=== PATIENT | male | born 1955 | race Caucasian/White ===

== ENCOUNTER → 2020-04-12 09:22 | Outpatient (BNVA) | payer MEDICARE, MEDICAID, SELFPAY | PROVIDERS: Visit Provider Anesthesiology | DX: Z76.89 Persons encountering health services in other specified circumstances (principal) ==

== ENCOUNTER → 2020-08-27 13:12 | Outpatient (BNVA) | payer MEDICARE, MEDICAID, SELFPAY | PROVIDERS: PCP Nurse Practitioner Primary Care; Visit Provider Physician Assistant Medical ==

== ENCOUNTER 2020-09-03 10:54 | Outpatient (REF) | payer MEDICARE, MEDICAID, SELFPAY ==
--- NOTE | ~2020-09-03 | MM_ITS ---
EXAMINATION: BONE DENSITOMETRY CLINICAL INDICATION: Other osteoporosis without current pathological fracture. COMPARISON: Baseline BD dated 08/21/2017. TECHNIQUE: Using a [employer] DXA System (software version: 13.1) manufactured by [employer], dual-energy x-ray absorptiometry was performed of the lumbar spine and left hip. The images are of good technical quality. Summary results are attached. FINDINGS: AP SPINE L1-L4: Current: BMD 0.804 g/cm2, Z-score -3.5, T-score -3.5, osteoporosis, 8.9% increase from baseline (<5% change is not significant). Baseline: BMD 0.738 g/cm2. LEFT FEMUR, NECK: Current: BMD 0.778 g/cm2, Z-score -1.5, T-score -2.2, osteopenia. Baseline: BMD 0.685 g/cm2. LEFT FEMUR, TOTAL: Current: BMD 0.796 g/cm2, Z-score -1.9, T-score -2.1, osteopenia, 7.6% increase from baseline (<5% change is not significant). Baseline: BMD 0.740 g/cm2. IDENTIFIED RISK FACTORS: Height loss, tobacco use (current smoker), history of fracture (adult), secondary osteoporosis. HISTORY OF FRACTURE: Hip, forearm, shoulder. MEDICATIONS: None listed. MM/XR DEXA axial skeleton IMPRESSION: 1. DIAGNOSIS: Severe osteoporosis based on the lowest T-score value of -3.5 in the lumbar spine and fracture history applying World Health Organization criteria. 2. 10-YEAR FRACTURE RISK PREDICTION, FRAX: Major osteoporotic fracture (clinical spine, forearm, hip or shoulder) 13.7%. Hip fracture 4.9%. 3. Treatment Recommendations: NOF guidelines recommend consideration for treatment in postmenopausal women and men age 50 and older presenting with the following: -A hip or vertebral (clinical or morphometric) fracture. -T-score less than or equal to -2.5 at the femoral neck or spine after appropriate evaluation to exclude secondary causes. -Low bone mass at the hip or spine and a 10-year fracture probability by FRAX of greater than or equal to 3% for hip fracture or greater than or equal to 20% for major osteoporotic fracture based on the [place] adapted WHO algorithm. 4. Other Recommendations: All treatment decisions require clinical judgment and consideration of individual patient factors, including patient preferences, comorbidities, previous drug use, risk factors not captured in the FRAX model (e.g. frailty, falls, vitamin D deficiency, increased bone turnover, interval significant decline in bone density) and possible under or overestimation of fracture risk by FRAX. Additional medical evaluation for secondary cause of low bone mineral density may be appropriate. FUTURE SCAN RECOMMENDATION: People with diagnosed cases of osteoporosis or at high risk for fracture should have regular bone mineral density tests. For patients eligible for Medicare, routine testing is allowed once every 2 years. The testing frequency can be increased to one year for patients who have rapidly progressing disease, those who are receiving or discontinuing medical therapy to restore bone mass, or have additional risk factors.
== END 2020-09-03 10:55 | disposition home or self-care (01) ==
LOC: HO.MAMMO 10:54
PROVIDERS: Visit Provider Emergency Medicine
DX: M81.8 Other osteoporosis without current pathological fracture (principal); F17.200 Nicotine dependence, unspecified, uncomplicated
CPT/HCPCS: 77080

== ENCOUNTER 2020-09-14 11:14 | Outpatient (REF) | payer MEDICARE, MEDICAID, SELFPAY ==
--- NOTE | ~2020-09-14 | CT_ITS ---
EXAMINATION: CT CHEST SCREENING CLINICAL INFORMATION: Nicotine dependence. COMPARISON: None. TECHNIQUE: Multidetector volumetric CT imaging of the chest is performed without contrast using low dose technique. Additional 2D coronal and sagittal reformatted images and axial 3D maximum intensity projection (MIP) images are generated on the CT workstation. This CT examination was performed using dose optimization techniques as appropriate, variously including the following: *Automated exposure control *Adjustment of mA and/or kV according to patient size (this includes techniques or standardized protocols for targeted exams where dose is matched to indication/reason for exam; i.e. extremities or head) *Use of iterative reconstruction technique DLP: 67 mGy-cm FINDINGS: LUNGS: There is paraseptal emphysema most prominent in the right upper lobe. There is no pulmonary nodule, mass or consolidation. Minimal atelectatic changes seen in both lung bases. MEDIASTINUM: The thyroid lobes are symmetrical and normal. The central trachea and the bronchi are widely patent. Heart size and the great vessels are normal caliber. There are small shotty lymph nodes in the pretracheal space. No pericardial effusion seen. A small hiatal hernia is noted. PLEURA: There is no pleural effusion. No pleural mass or thickening. AXILLA: No lymphadenopathy. UPPER ABDOMEN: Visualized liver, spleen, pancreas and bilateral adrenal glands are unremarkable. The gallbladder has been surgically removed. OSSEOUS STRUCTURES: There is exaggerated thoracic kyphosis and moderate levoscoliosis with anterior wedge deformity T4, T6, T7 and T8 vertebra of indeterminate age. CT/CT lung screening IMPRESSION: No evidence of pulmonary nodule, mass or consolidation. Mild emphysema. Bibasilar atelectasis. Small hiatal hernia. Compression deformities of several thoracic vertebrae of indeterminate age. ASSESSMENT: Lung-RADS category 1: Negative RECOMMENDATION: Low dose annual CT chest exam.
== END 2020-09-14 11:15 | disposition home or self-care (01) ==
LOC: HO.CT 11:14
PROVIDERS: Visit Provider Physician Assistant Medical
DX: Z12.2 Encounter for screening for malignant neoplasm of respiratory organs (principal); F17.210 Nicotine dependence, cigarettes, uncomplicated
CPT/HCPCS: 71271

== ENCOUNTER 2020-12-21 10:21 | Outpatient (REF) | payer MEDICARE, MEDICAID, SELFPAY ==
--- NOTE | ~2020-12-21 | US_ITS ---
EXAMINATION: US COMPLETE ABDOMEN WITH LIVER ELASTOGRAPHY CLINICAL INFORMATION: Chronic viral hepatitis C COMPARISON: None. TECHNIQUE: Real-time imaging of the abdominal viscera. Noninvasive ultrasound liver fibrosis assessment is performed using [employer] Elast[employer] point quantification shear wave elastography (pSWE) with a C5-2 MHz transducer. Multiple elastography samples are obtained. FINDINGS: PANCREAS: Not well visualized due to bowel gas. ABDOMINAL AORTA: Not well visualized due to bowel gas. INFERIOR VENA CAVA: Not well visualized due to bowel gas. LIVER: Normal. The liver demonstrates normal size, contour and echogenicity. No focal lesion or intrahepatic biliary duct dilatation. The right lobe measures 16 cm in length. The left lobe measures 12 cm in length. Portal flow is normal. Hepatopedal. Shear wave liver elastography median stiffness is 1.3 m/s (reference: normal median stiffness is 1.3 m/s or less). IQR/median stiffness to assess sampling precision is 0.3 (reference: good quality data set is IQR/median stiffness of 0.15 or less). GALLBLADDER: Surgically removed COMMON BILE DUCT: Normal in caliber measuring 0.6 cm in diameter. RIGHT KIDNEY: There is a 7 x 4 x 3 mm echogenic density with twinkle artifact in the midpole suggestive of a stone. There is a 3.8 cm cyst in the lower pole.. No hydronephrosis. No The kidney measures 10 cm in maximum dimension. LEFT KIDNEY: There is a 4 x 2 x 3 mm echogenic density with twinkle artifact in the midpole suggestive of a stone No hydronephrosis. No focal parenchymal lesions. The kidney measures 11 cm in maximum dimension. SPLEEN: Normal. The spleen measures 11 cm in maximum dimension. FREE FLUID: None. US/US abdomen comp w elastography IMPRESSION: 1. Impression: Normal-appearing liver. Nonvisualization of the pancreas, aorta and IVC. Bilateral renal stones. Right renal cyst. 2. Liver elastography: Slightly limited due to sampling error. High probability of normal REFERENCE: Society of Radiologists in Ultrasound Liver Stiffness Thresholds (2019): LIVER STIFFNESS THRESHOLDS: *Liver Stiffness equal or less than 1.3 m/s: High probability of being normal. *Liver Stiffness less than 1.7 m/s: In the absence of other known clinical signs, rules out compensated advanced chronic liver disease. *Liver Stiffness 1.7-2.1 m/s: Suggestive of compensated advanced chronic liver disease but need further test for confirmation. *Liver Stiffness over 2.1 m/s: Rules in compensated advanced chronic liver disease. *Liver Stiffness over 2.4 m/s: Suggestive of clinically significant portal hypertension. QUALITY OF DATA SET: *IQR/Median value equal or less than 0.15 implies a quality data set. *IQR/Median value over 0.15 implies a poor quality data set. SIGNIFICANT CHANGE FROM PRIOR EXAM: Significant change if liver stiffness measurement is 10% or greater from prior exam. OTHER CONSIDERATIONS: The stage of liver fibrosis may be overestimated in the setting of acute hepatitis, liver inflammation, elevated liver function tests, hepatic vascular congestion, obstructive cholestasis, non-fasting state, and infiltrative diseases such as amyloidosis and lymphoma. In some patients with NAFLD, the liver stiffness thresholds for compensated advanced chronic liver disease may be lower. In causes other than viral hepatitis and NAFLD, liver stiffness thresholds are not well established.
== END 2020-12-21 10:22 | disposition home or self-care (01) ==
LOC: HO.US 10:21
PROVIDERS: Visit Provider Internal Medicine Infectious Disease
DX: B20 Human immunodeficiency virus [HIV] disease (principal); B18.2 Chronic viral hepatitis C
CPT/HCPCS: 76705; 76981

== ENCOUNTER 2021-02-21 08:57 | Outpatient (REF) | payer MEDICARE, MEDICAID, SELFPAY ==
--- NOTE | 2021-02-21 | PFT_ITS ---
INDICATION: COPD. SPIROMETRY: FEV1 to FVC of 62% with an FEV1 of 1.83 L which is 50% predicted. An FVC of 2.97 L which is 60% predicted. No significant response to bronchodilators noted. The patient does have significant small airways disease, which is typical of asthma. Maximum voluntary ventilation 44% predicted. LUNG VOLUMES: Total lung capacity 76% predicted. DIFFUSION CAPACITY: DLCO 44% predicted. COMPARISONS: None available. INTERPRETATION: There is an obstructive ventilatory defect consistent with severe COPD. The patient may have a component of asthma/COPD overlap syndrome. No significant response to bronchodilators noted. The patient does have severe decrease in maximum voluntary ventilation secondary to likely deconditioning and also worsening dynamic inspiratory capacity. Lung volumes also demonstrate a mild restrictive ventilatory defect. Therefore, interstitial lung conditions need to be considered, especially when we expect the lungs to be hyperinflated. In addition to that, the patient does have a severe diffusion impairment. Clinical correlation warranted. 6- minute walk test is warranted. MD REGINA Bennett/MODL / [id number]
== END 2021-02-21 08:58 | disposition home or self-care (01) ==
LOC: HO.RESP 08:57
PROVIDERS: PCP Nurse Practitioner Primary Care; Visit Provider Nurse Practitioner Primary Care
DX: J44.9 Chronic obstructive pulmonary disease, unspecified (principal)
CPT/HCPCS: 94060; 94727; 94729

== ENCOUNTER → 2021-03-08 15:48 | Outpatient (BNVA) | payer MEDICARE, MEDICAID, SELFPAY | PROVIDERS: PCP Nurse Practitioner Primary Care; Visit Provider Internal Medicine | DX: J44.9 Chronic obstructive pulmonary disease, unspecified (principal); M81.0 Age-related osteoporosis without current pathological fracture; B20 Human immunodeficiency virus [HIV] disease; F11.10 Opioid abuse, uncomplicated; F17.210 Nicotine dependence, cigarettes, uncomplicated | CPT/HCPCS: 99202 ==

== ENCOUNTER → 2021-04-21 10:56 | Outpatient (BNVA) | payer MEDICARE, MEDICAID, SELFPAY | PROVIDERS: PCP Nurse Practitioner Primary Care; Visit Provider Internal Medicine | DX: J44.9 Chronic obstructive pulmonary disease, unspecified (principal); F17.200 Nicotine dependence, unspecified, uncomplicated | CPT/HCPCS: 99212 ==

== ENCOUNTER → 2021-05-13 11:34 | Outpatient (REF) | payer MEDICARE, MEDICAID, SELFPAY ==
--- NOTE | 2021-05-13 11:41 | ECG_ITS ---
Test Reason : opiod dependence Blood Pressure : / mmHG Vent. Rate : 070 BPM Atrial Rate : 070 BPM P-R Int : 164 ms QRS Dur : 082 ms QT Int : 418 ms P-R-T Axes : 024 -32 043 degrees QTc Int : 451 ms Normal sinus rhythm Left axis deviation Intra-ventricular conduction delay Nonspecific ST abnormality Abnormal ECG No previous ECGs available Referred By: Yoseph Nieves Electronically Signed By:MADHAV MALDONADO MD
== END ==
LOC: HO.CARD 11:34
PROVIDERS: Absent Provider Nurse Practitioner Primary Care; PCP Nurse Practitioner Primary Care; Visit Provider Emergency Medicine
DX: F11.20 Opioid dependence, uncomplicated (principal)
CPT/HCPCS: 93005

== ENCOUNTER 2021-06-14 11:04 | Outpatient (REF) | payer MEDICARE, MEDICAID, SELFPAY ==
--- NOTE | ~2021-06-14 | US_ITS ---
EXAMINATION: US COMPLETE ABDOMEN WITH LIVER ELASTOGRAPHY CLINICAL INFORMATION: Chronic viral hepatitis C. COMPARISON: Ultrasound abdomen 12/21/2020. TECHNIQUE: Real-time imaging of the abdominal viscera. Noninvasive ultrasound liver fibrosis assessment is performed using [employer] point quantification shear wave elastography (pSWE) with a C5-2 MHz transducer. Multiple elastography samples are obtained. FINDINGS: PANCREAS: The pancreas is obscured by overlying gas. ABDOMINAL AORTA: The middle, and distal aortic segments are normal in caliber. The proximal segment is obscured by overlying gas. INFERIOR VENA CAVA: The proximal IVC is obscured by overlying gas. The mid and the distal segments are patent. LIVER: The liver demonstrates normal size, contour and slightly increased echogenicity. No focal lesion or intrahepatic biliary duct dilatation. The right lobe measures 17.1 cm in length. The left lobe measures 10.7 cm in length. Portal flow is hepatopedal. Shear wave liver elastography median stiffness is 1.44 m/s (reference: normal median stiffness is 1.3 m/s or less). IQR/median stiffness to assess sampling precision is 0.15 (reference: good quality data set is IQR/median stiffness of 0.15 or less). GALLBLADDER: The gallbladder has been surgically removed. COMMON BILE DUCT: Normal in caliber measuring 0.55 cm in diameter. RIGHT KIDNEY: No hydronephrosis. There are two midpole calculi measuring 0.8 x 0.5 x 0.9 cm and upper pole calculi measuring 0.7 x 0.3 x 0.4 cm. There is anechoic cyst in the lower pole measuring 4.6 x 3.9 x 4.5 cm. The kidney measures 10.7 cm in maximum dimension. LEFT KIDNEY: Normal. No hydronephrosis. No renal calculi or focal parenchymal lesions. There is an echogenic stone in the midpole measuring 1.0 x 0.4 x 0.7 cm. The kidney measures 11.2 cm in maximum dimension. SPLEEN: Normal. The spleen measures 12.3 cm in maximum dimension. FREE FLUID: None. US/US abdomen comp w elastography IMPRESSION: 1. Nonobstructive bilateral echogenic renal calculi. There is no hydronephrosis. 4.6 cm cyst lower pole right kidney. Mild hepatic steatosis without focal lesion. Proximal IVC and aortic segments are not seen due to overlying gas. 2. Liver elastography: Median liver stiffness 1.44 corresponds to cACLD ruled out. REFERENCE: Society of Radiologists in Ultrasound Liver Stiffness Thresholds (2020): LIVER STIFFNESS THRESHOLDS: *Liver Stiffness equal or less than 1.3 m/s: High probability of being normal. *Liver Stiffness less than 1.7 m/s: In the absence of other known clinical signs, rules out compensated advanced chronic liver disease. *Liver Stiffness 1.7-2.1 m/s: Suggestive of compensated advanced chronic liver disease but need further test for confirmation. *Liver Stiffness over 2.1 m/s: Rules in compensated advanced chronic liver disease. *Liver Stiffness over 2.4 m/s: Suggestive of clinically significant portal hypertension. QUALITY OF DATA SET: *IQR/Median value equal or less than 0.15 implies a quality data set. *IQR/Median value over 0.15 implies a poor quality data set. SIGNIFICANT CHANGE FROM PRIOR EXAM: Significant change if liver stiffness measurement is 10% or greater from prior exam. OTHER CONSIDERATIONS: The stage of liver fibrosis may be overestimated in the setting of acute hepatitis, liver inflammation, elevated liver function tests, hepatic vascular congestion, obstructive cholestasis, non-fasting state, and infiltrative diseases such as amyloidosis and lymphoma. In some patients with NAFLD, the liver stiffness thresholds for compensated advanced chronic liver disease may be lower. In causes other than viral hepatitis and NAFLD, liver stiffness thresholds are not well established.
== END 2021-06-14 11:05 | disposition home or self-care (01) ==
LOC: HO.US 11:04
PROVIDERS: PCP Nurse Practitioner Primary Care; Visit Provider Internal Medicine
DX: B18.2 Chronic viral hepatitis C (principal)
CPT/HCPCS: 76705; 76981

== ENCOUNTER → 2022-01-23 15:00 | Outpatient (RCR) | payer MEDICARE, MEDICAID, SELFPAY | END | disposition home or self-care (01) | LOC: HO.WCC 10-11 08:00 | PROVIDERS: Visit Provider Physician Assistant | DX: T81.32XA Disruption of internal operation (surgical) wound, not elsewhere classified, initial encounter (principal); L97.212 Non-pressure chronic ulcer of right calf with fat layer exposed; B20 Human immunodeficiency virus [HIV] disease; I10 Essential (primary) hypertension; J44.9 Chronic obstructive pulmonary disease, unspecified; G62.9 Polyneuropathy, unspecified; F17.200 Nicotine dependence, unspecified, uncomplicated; Z91.19 Patient's noncompliance with other medical treatment and regimen | CPT/HCPCS: 11042; 11045; 15271; 15272; 97597; 97598; 99202; 99212; 99213; Q4160 ==

== ENCOUNTER 2022-03-09 11:03 | Outpatient (REF) | payer MEDICARE, MEDICAID, SELFPAY ==
--- NOTE | ~2022-03-09 | MR_ITS ---
EXAMINATION: MR LUMBAR SPINE WITHOUT CONTRAST CLINICAL INFORMATION: Low back pain and leg weakness. COMPARISON: There are no prior studies available for comparison. TECHNIQUE: MRI of the lumbar spine was obtained using routine sequences without contrast. FINDINGS: VERTEBRAL BODIES AND PARASPINAL STRUCTURES: There is a mild retrolisthesis of L4 on L5. There is multilevel loss of intervertebral disc signal throughout the lumbar spine. There is narrowing of intervertebral disc height which is most severe posteriorly at L4-L5. There are mild degenerative endplate contour changes with slight edematous signal. Vertebral body heights are maintained and no fractures are demonstrated. Overall, marrow signal is relatively homogenous. The visualized retroperitoneal structures are unremarkable. There are degenerative changes of the sacroiliac joints. There has been a right total hip arthroplasty. CONUS MEDULLARIS AND CAUDA EQUINA: Normal, terminating at the level of T12-L1. The lower thoracic spinal cord appears normal. The cauda equina nerve roots and filum terminale appear normal. SPINAL LEVELS: L1-L2: There is mild bilateral facet arthropathy. Disc contour is normal. There is no central stenosis or foraminal narrowing. L2-L3: There is mild bilateral facet arthropathy. Disc contour is normal. There is no central stenosis or foraminal narrowing. L3-L4: There is mild bilateral facet arthropathy. There is a 0.4 cm synovial cyst developing anteriorly off the right facet joint with mild narrowing of the superior right neural foramen. There is a broad-based posterior disc protrusion which narrows the subarticular recesses bilaterally and there is moderate central stenosis. There are bilateral femoral disc protrusions, more prominent on the right with impingement on the exiting L3 nerve roots. L4-L5: There is moderately severe bilateral facet arthropathy with ligamenta flava hypertrophy. There is a broad-based posterior disc protrusion which markedly narrows the subarticular recesses, and there is severe central stenosis. There is a right subarticular recess extruded disc component, with mass effect on the traversing right L5 nerve root and there is distortion of the thecal sac on the right. There are bilateral foraminal disc contusions with impingement on the exiting right greater than left L4 nerve roots. L5-S1: There is severe bilateral facet arthropathy. The left lamina appears dysplastic. There is a posterior disc protrusion with flattening of the ventral thecal sac, more prominent to the left of midline in the left subarticular recess. There is mild impingement on the traversing S1 nerve roots. There are inferior foraminal disc protrusions bilaterally, more prominent on the left and there is mild impingement on the exiting left L5 nerve root. There is mild central stenosis. MR/MR lumbar spine wo con IMPRESSION: 1. At L4-L5 there is facet arthropathy and there is a posterior disc protrusion/extrusion extending into the right subarticular recess with mass effect on the traversing right L5 nerve root. There is severe central stenosis. Bilateral foraminal disc protrusions impinge on the exiting L4 nerve roots. 2. At L5-S1 there is severe facet arthropathy and there is a posterior disc protrusion with narrowing of the subarticular recesses and impingement on the traversing S1 nerve roots. There is mild central stenosis. 3. At L3-L4 there may be a synovial cyst developing anteriorly off the right facet joint. There is a broad-based posterior disc protrusion with narrowing of the subarticular recesses and moderate central stenosis. The is bilateral L3 foraminal nerve root impingement.
== END 2022-03-09 11:04 | disposition home or self-care (01) ==
LOC: HO.MRI 11:03
PROVIDERS: Visit Provider Nurse Practitioner Primary Care
DX: M54.41 Lumbago with sciatica, right side (principal); M54.42 Lumbago with sciatica, left side
CPT/HCPCS: 72148

== ENCOUNTER 2023-05-03 12:09 | Outpatient (REF) | payer MEDICARE, MEDICAID, SELFPAY ==
[2023-05-03 13:05] LABS: MANUAL DIFF FLAG NO
[2023-05-03 13:10] LABS: Basophils Absolute Auto 0.1 X10*3/uL (0.0-0.2); Basophils Percent Auto 0.7 % (0-2); Eosinophils Absolute Auto 0.3 X10*3/uL (0.0-0.4); Hematocrit 41.1 % (42.0-52.0); Hemoglobin 12.5 g/dl (14.0-18.0); Imm Gran Abs Auto 0.03 X10*3/uL (0.00-0.03); Imm Gran Pct Auto 0.4 % (0.0-0.4); Lymphocytes Absolute Auto 2.4 X10*3/uL (1.2-4.9); Lymphocytes Percent Auto 34.1 % (20-40); Mean Corpuscular HGB Conc 30.4 g/dl (31.0-36.0); Mean Corpuscular Hemoglobin 25.9 pg (27.0-33.0); Mean Corpuscular Volume 85.3 fL (80.0-98.0); Mean Platelet Volume 10.4 fL (9.4-12.4); Monocytes Absolute Auto 0.6 X10*3/uL (0.1-1.2); Monocytes Percent Auto 7.9 % (2-11); Neutrophils Absolute Auto 3.7 x10*3/uL (2.0-8.3); Neutrophils Percent Auto 52.9 % (45-73); Platelet Count 270 X10*3/uL (160-400); Red Blood Count 4.82 X10*6/uL (4.60-5.80); Red Cell Distribution Width 16.9 % (11.0-16.0)
[2023-05-03 13:13] LABS: Prothrombin Time 11.6 SEC (11.1-13.3)
[2023-05-03 13:26] LABS: Alanine Aminotransferase 8 U/L (0-40); Albumin Level 4.1 g/dL (3.5-5.0); Alkaline Phosphatase 122 U/L (39-117); Anion Gap 12 (12-20); Aspartate Amino Transferase 17 U/L (5-37); Bilirubin Total 0.3 mg/dL (0.0-1.0); Blood Urea Nitrogen 18 mg/dL (9-16); Calcium 9.6 mg/dL (8.4-10.2); Carbon Dioxide 23 mmol/L (22-29); Chloride 105 mmol/L (96-108); Estimated Glomerular Filt Rate > 60; Glucose Random 83 mg/dL (60-115); Potassium 4.3 mmol/L (3.3-5.1); Sodium 136 mmol/L (135-145); Total Protein 8.4 g/dL (6.5-8.0)
[2023-05-04 15:38] LABS: Hepatitis B Viral DNA Qn - cp NOT DETECTED Log IU/mL (NOT DETECTED); Hepatitis B Viral DNA Qn-IU/mL NOT DETECTED (NOT DETECTED)
[2023-05-05 13:18] LABS: HIV RNA PCR Qn Copies 39 copies/mL (NOT DETECTED); HIV RNA PCR Qn Log Copies 1.59 (NOT DETECTED)
[2023-05-06 09:48] LABS: HCV Log PCR 7.37 Log IU/mL (NOT DETECTED); HepC Viral Load 23500000 IU/mL (NOT DETECTED)
[2023-05-07 07:48] LABS: Absolute CD3 Count 1483 cells/uL (840-3060); Absolute CD4 Count 373 cells/uL (490-1740); Absolute CD8 Count 1095 cells/uL (180-1170); Absolute Lymphocytes 1971 cells/uL (850-3900); CD4 CD8 Ratio 0.34 (0.86-5.00); Percent CD3 Cells 75 % (57-85); Percent CD4 Cells 19 % (30-61); Percent CD8 Cells 56 % (12-42)
[2023-05-08 23:29] LABS: FIB-ALT 8 U/L (9-46); FIB-Alpha-2-Macroglobulin 303 mg/dL (106-279); FIB-Apolipoprotein A1 103 mg/dL (94-176); FIB-GGT 15 U/L (3-70); FIB-Haptoglobin 152 mg/dL (43-212); FIB-Total Bilirubin 0.3 mg/dL (0.2-1.2); Liver Fibrosis Score 0.45; Liver Fibrosis Stage F1-F2; Nec Inflam Act Grade A0; Nec Inflam Act Score 0.02
== END 2023-05-03 12:10 | disposition home or self-care (01) ==
LOC: HO.HHCL 12:09
PROVIDERS: Visit Provider Internal Medicine
DX: B18.2 Chronic viral hepatitis C (principal); B18.1 Chronic viral hepatitis B without delta-agent; B20 Human immunodeficiency virus [HIV] disease
CPT/HCPCS: 36415; 80053; 81596; 85025; 85610; 86359; 86360; 87517; 87522; 87536

== ENCOUNTER 2023-10-18 14:47 | Outpatient (REF) | payer MEDICARE, MEDICAID, SELFPAY ==
[2023-10-18 16:14] LABS: MANUAL DIFF FLAG NO
[2023-10-18 16:19] LABS: Basophils Absolute Auto 0.1 X10*3/uL (0.0-0.2); Basophils Percent Auto 0.8 % (0-2); Eosinophils Absolute Auto 0.5 X10*3/uL (0.0-0.4); Eosinophils Percent Auto 4.6 % (0-4); Hematocrit 38.2 % (42.0-52.0); Hemoglobin 12.2 g/dl (14.0-18.0); Imm Gran Abs Auto 0.05 X10*3/uL (0.00-0.03); Imm Gran Pct Auto 0.5 % (0.0-0.4); Lymphocytes Absolute Auto 2.4 X10*3/uL (1.2-4.9); Lymphocytes Percent Auto 24.4 % (20-40); Mean Corpuscular HGB Conc 31.9 g/dl (31.0-36.0); Mean Corpuscular Hemoglobin 29.9 pg (27.0-33.0); Mean Corpuscular Volume 93.6 fL (80.0-98.0); Mean Platelet Volume 9.6 fL (9.4-12.4); Monocytes Absolute Auto 0.7 X10*3/uL (0.1-1.2); Neutrophils Absolute Auto 6.1 x10*3/uL (2.0-8.3); Neutrophils Percent Auto 62.7 % (45-73); Platelet Count 315 X10*3/uL (160-400); Red Blood Count 4.08 X10*6/uL (4.60-5.80); Red Cell Distribution Width 15.8 % (11.0-16.0); White Blood Count 9.8 X10*3/uL (4.8-10.8)
[2023-10-18 17:30] LABS: Alanine Aminotransferase 14 U/L (0-40); Alkaline Phosphatase 177 U/L (39-117); Anion Gap 10 (12-20); Aspartate Amino Transferase 16 U/L (5-37); Bilirubin Total 0.3 mg/dL (0.0-1.0); Blood Urea Nitrogen 13 mg/dL (9-16); Calcium 9.3 mg/dL (8.4-10.2); Carbon Dioxide 28 mmol/L (22-29); Chloride 103 mmol/L (96-108); Cholesterol 154 mg/dL (<200); Estimated Glomerular Filt Rate > 60; Glucose Random 84 mg/dL (60-115); HDL Cholesterol 38 mg/dL (>40); LDL Cholesterol Calculated 94 mg/dL (<100); Potassium 3.8 mmol/L (3.3-5.1); Sodium 137 mmol/L (135-145); Triglycerides 114 mg/dL (<150)
[2023-10-18 18:54] LABS: Reflex LDLD? No
[2023-10-19 10:14] LABS: Absolute CD3 Count 1732 cells/uL (840-3060); Absolute CD4 Count 533 cells/uL (490-1740); Absolute CD8 Count 1177 cells/uL (180-1170); Absolute Lymphocytes 2383 cells/uL (850-3900); CD4 CD8 Ratio 0.45 (0.86-5.00); Percent CD3 Cells 73 % (57-85); Percent CD4 Cells 22 % (30-61); Percent CD8 Cells 49 % (12-42)
[2023-10-20 18:58] LABS: HIV RNA PCR Qn Copies 51 copies/mL (NOT DETECTED); HIV RNA PCR Qn Log Copies 1.71 (NOT DETECTED)
[2023-10-20 21:43] LABS: TS Negative Control Passed; TS Panel A 0; TS Panel B 0; TS Positive Control Passed; TSpotTB Negative (Negative)
[2023-10-23 06:48] LABS: HCV Log PCR <1.18 NOT DETECTED Log IU/mL (NOT DETECTED); HepC Viral Load <15 NOT DETECTED IU/mL (NOT DETECTED)
== END 2023-10-18 14:48 | disposition home or self-care (01) ==
LOC: HO.CHCLDS 14:47
PROVIDERS: Visit Provider Nurse Practitioner Primary Care
DX: B20 Human immunodeficiency virus [HIV] disease (principal); B18.2 Chronic viral hepatitis C; I10 Essential (primary) hypertension
CPT/HCPCS: 36415; 80053; 80061; 85025; 86359; 86360; 86481; 87522; 87536

== ENCOUNTER 2024-06-19 11:37 | Outpatient (REF) | payer MEDICARE, MEDICAID, SELFPAY ==
[2024-06-19 13:16] LABS: MANUAL DIFF FLAG NO
[2024-06-19 13:24] LABS: Hematocrit 47.5 % (42.0-52.0); Hemoglobin 15.7 g/dl (14.0-18.0); Mean Corpuscular Hemoglobin 32.1 pg (27.0-33.0); Mean Corpuscular Volume 97.1 fL (80.0-98.0); Red Blood Count 4.89 X10*6/uL (4.60-5.80); White Blood Count 6.6 X10*3/uL (4.8-10.8)
[2024-06-19 13:25] LABS: Basophils Absolute Auto 0.1 X10*3/uL (0.0-0.2); Basophils Percent Auto 0.8 % (0-2); Eosinophils Absolute Auto 0.2 X10*3/uL (0.0-0.4); Eosinophils Percent Auto 2.6 % (0-4); Imm Gran Abs Auto 0.02 X10*3/uL (0.00-0.03); Imm Gran Pct Auto 0.3 % (0.0-0.4); Lymphocytes Absolute Auto 1.9 X10*3/uL (1.2-4.9); Lymphocytes Percent Auto 28.8 % (20-40); Mean Corpuscular HGB Conc 33.1 g/dl (31.0-36.0); Mean Platelet Volume 9.5 fL (9.4-12.4); Monocytes Absolute Auto 0.8 X10*3/uL (0.1-1.2); Monocytes Percent Auto 12.7 % (2-11); Neutrophils Absolute Auto 3.6 x10*3/uL (2.0-8.3); Neutrophils Percent Auto 54.8 % (45-73); Platelet Count 200 X10*3/uL (160-400); Red Cell Distribution Width 13.1 % (11.0-16.0)
[2024-06-19 13:57] LABS: Alanine Aminotransferase 18 U/L (0-40); Albumin Level 4.1 g/dL (3.5-5.0); Alkaline Phosphatase 75 U/L (39-117); Anion Gap 13 (12-20); Aspartate Amino Transferase 40 U/L (5-37); Bilirubin Total 0.3 mg/dL (0.0-1.0); Blood Urea Nitrogen 14 mg/dL (9-16); Calcium 9.7 mg/dL (8.4-10.2); Carbon Dioxide 25 mmol/L (22-29); Chloride 104 mmol/L (96-108); Estimated Glomerular Filt Rate > 60; Glucose Random 92 mg/dL (60-115); Sodium 138 mmol/L (135-145); Total Protein 8.2 g/dL (6.5-8.0)
[2024-06-19 14:03] LABS: Syphilis Screen Nonreactive (Nonreactive)
[2024-06-20 09:06] LABS: HBS Num1 54.61 mIU/mL (0-7.99); HBc Num1 6.84 S/CO (0.00-0.79); HBsAGNum1 0.44 S/CO (0.00-0.99); Hepatitis A Antibody IgG REACTIVE (Nonreactive); Hepatitis B Surface Antigen Negative (Negative); ~Hepatitis A Antibody IgG 11.98 S/CO (0.00-0.99); ~Hepatitis B Surface Antibody REACTIVE (Nonreactive)
[2024-06-20 10:36] LABS: HBc Num2 6.27 S/CO; HBc Num3 6.16 S/CO; Hepatitis B Core Antibody Reactive (Nonreactive)
[2024-06-20 19:14] LABS: HIV RNA PCR Qn Copies 13300 copies/mL (NOT DETECTED); HIV RNA PCR Qn Log Copies 4.12 (NOT DETECTED)
[2024-06-25 01:42] LABS: Absolute CD3 Count 1274 cells/uL (840-3060); Absolute CD4 Count 325 cells/uL (490-1740); Absolute CD8 Count 966 cells/uL (180-1170); Absolute Lymphocytes 1616 cells/uL (850-3900); CD4 CD8 Ratio 0.34 (0.86-5.00); Percent CD3 Cells 79 % (57-85); Percent CD4 Cells 20 % (30-61); Percent CD8 Cells 60 % (12-42)
== END 2024-06-19 11:38 | disposition home or self-care (01) ==
LOC: HO.HHCL 11:37
PROVIDERS: Visit Provider Internal Medicine
DX: B20 Human immunodeficiency virus [HIV] disease (principal); Z11.59 Encounter for screening for other viral diseases; Z72.89 Other problems related to lifestyle
CPT/HCPCS: 36415; 80053; 85025; 86359; 86360; 86704; 86706; 86708; 86780; 86787; 87340; 87536